=== PATIENT | male | born 1995 | race Caucasian/White ===

== ENCOUNTER 2017-07-14 09:15 | Outpatient (CLI) | payer MEDICAID | END 2017-07-14 09:16 | disposition critical access hospital (66) | LOC: EMS 09:15 | PROVIDERS: ATTEND Surgery | DX: R45.851 Suicidal ideations (principal) | CPT/HCPCS: A0425; A0429 ==

== ENCOUNTER 2017-07-14 09:43 | Emergency (ER) | payer MEDICAID ==
[2017-07-14 10:27] LABS: BASOPHILS # (AUTO) 0.1 10^3/uL (0.0-0.1); BASOPHILS % (AUTO) 0.8 %; EOSINOPHILS # (AUTO) 0.4 10^3/uL (0.0-0.7); EOSINOPHILS % (AUTO) 3.3 %; HGB - HEMOGLOBIN 15.2 g/dL (14.0-18.0); LYMPHOCYTES # (AUTO) 2.1 10^3/uL (1.5-3.5); LYMPHOCYTES % (AUTO) 18.7 %; MEAN CORPUSCULAR HEMOGLOBIN 29.9 pg (27.0-31.0); MEAN CORPUSCULAR HGB CONC 34.3 g/dL (32.0-36.0); MEAN PLATELET VOLUME 9.4 fL (7.4-11.4); MONOCYTES # (AUTO) 0.8 10^3/uL (0.0-1.0); MONOCYTES % (AUTO) 7.4 %; NEUTROPHILS # (AUTO) 7.8 10^3/uL (1.5-6.6); NEUTROPHILS % (AUTO) 69.8 %; PLT - PLATELET COUNT 164 10^3/uL (130-450); RED BLOOD COUNT 5.11 10^6/uL (4.70-6.10); RED CELL DISTRIBUTION WIDTH 12.4 % (12.0-15.0); WHITE BLOOD COUNT 11.2 x10^3/uL (4.8-10.8)
[2017-07-14 10:39] LABS: ALBUMIN 4.5 g/dL (3.2-5.5); ALBUMIN/GLOBULIN RATIO 1.5 (1.0-2.2); ALKALINE PHOSPHATASE 60 IU/L (42-121); ALT ALANINE AMINOTRANSFERASE 21 IU/L (10-60); AST ASPARTATE AMINOTRANSFERASE 17 IU/L (10-42); BILIRUBIN,TOTAL 1.1 mg/dL (0.2-1.0); BUN - BLOOD UREA NITROGEN 15 mg/dL (6-20); CALCIUM 9.3 mg/dL (8.5-10.3); CARBON DIOXIDE - CO2 25 mmol/L (21-32); CHLORIDE 101 mmol/L (101-111); CREATININE 0.9 mg/dL (0.6-1.2); GFR - MDRD 106 (>89); GLUCOSE 93 mg/dL (70-100); LIPASE 19 U/L (22-51); SODIUM 135 mmol/L (135-145); TOTAL PROTEIN 7.5 g/dL (6.7-8.2)
[2017-07-14 11:18] LABS: MUDS CUTOFF CONCENTRATIONS CUTOFF CONC BELOW:
[2017-07-14 11:20] LABS: BILIRUBIN,URINE NEGATIVE (NEGATIVE); CLARITY,URINE CLEAR (CLEAR); GLUCOSE, URINE (UA) NEGATIVE (NEGATIVE); KETONES,URINE (UA) NEGATIVE (NEGATIVE); LEUKOCYTE ESTERASE, URINE NEGATIVE (NEGATIVE); NITRITE,URINE NEGATIVE (NEGATIVE); OCCULT BLOOD,URINE NEGATIVE (NEGATIVE); PROTEIN,URINE NEGATIVE (NEGATIVE); UROBILINOGEN,URINE 0.2 (NORMAL) E.U./dL (NORMAL)
[2017-07-14 11:32] LABS: AMPHETAMINE SCREEN,URINE NEGATIVE (NEGATIVE); BENZODIAZEPINES SCREEN, URINE NEGATIVE (NEGATIVE); COCAINE SCREEN URINE NEGATIVE (NEGATIVE); METHADONE SCREEN, URINE NEGATIVE (NEGATIVE); METHAMPHETAMINES SCREEN, URINE NEGATIVE (NEGATIVE); OPIATE SCREEN, URINE NEGATIVE (NEGATIVE); OXYCODONE SCREEN, URINE NEGATIVE (NEGATIVE); PROPOXYPHENE SCREEN, URINE NEGATIVE (NEGATIVE); TRICYCLIC ANTIDEPRESSANT,URINE NEGATIVE (NEGATIVE)
--- NOTE | 2017-07-14 13:02 | TELEPSYCH PHYS NOTE ---
Telepsych Note - CHIEF COMPLAINT/HX OF PRESENT ILLNESS Cheif Complaint and History of Present Illness: Patient Name: Tor Friedman : 1995 Date: 07/14/2017 Location of Patient: [place] Location of Provider: [place] Provider Name: Constance Bolanos Provider Credentials: This evaluation was conducted via tele-psychiatry with the assistance of onsite staff: Dr Denton, RN Sridevi Chief Complaint: SI History of Present Illness: This is a 21yo male presenting to the ED for SI. Staff report that patient's uncle called 911 because patient had expressed SI to him. Precipitating stressors include being kicked out of the house by his uncle and being discharged from the [facility] 8 months ago. Staff report that patient expressed thoughts about jumping off a bridge. On interview, patient admits to depression with suicidal thoughts but denies any specific plans. Patient says he's struggled with depression off and on for 10 years but never sought help. He allowed his father Donato to be contacted as a collateral and father worries about his son's safety outside of a monitored setting. They both say that patient has never needed inpatient psychiatry before and that he has never engaged in any self harm. However, father says that they took patient's gun away to his father's safekeeping last weekend because they were worried about the patient using the gun against himself. Patient has made specific statements about self harm but they have changed from situation to situation. Father reports patient is not attending to hygeine and is increasingly withdrawn. Patient denies any HI and symptoms of psychosis. He is firm in his refusal of any type of mental health care. SI/ Self Harm/HI/Violence: +SI with various plans but no specifics; no HI; no past harm to self or others Collateral: father Donato at [phone] Access to Firearms: owns a gun but it is currently at his father's home 3 hours away; mother's home does not have guns Psychiatric History/Treatment History: none Drug/Alcohol History: toxicology negative Medical History: no active issues Medications & Freq: no psych meds Allergies: NKDA Family Psych History/History of Suicide: depression in father, uncle, and mother ; no suicides Social History: Living Situation: was with uncle but recently kicked out; now staying with his mother Employment: none currently Stressors: discharged from [facility] 8 months ago Strengths/supports: was able to tell uncle about suicidal thoughts today Mental Status Exam: Appearance and Attire: disheveled Attitude and Behavior: withdrawn Speech: reticent, soft, somewhat irritable tone Affect and Mood: blunted, "depressed" Association and Thought Processes: goal directed Thought Content: admits to passive SI but denies plans despite recent sources saying otherwise; no HI Perception: no hallucinations or delusions Sensorium and Orientation: alert, oriented to situation Insight and Judgment: fair to poor Impression/Risk Assessment: This is a 21 yo male with no prior psychiatric treatment who is brought to the ED for SI with various plans. Patient admits to depression with SI but no plan. He refuses both inpatient psychiatry and crisis stabilzation but is unable to make an adequate outpatient safety plan. Father is concerned about the patient's safety outside a monitored setting and they convinced patient to leave his gun to his father's safekeeping last weekend. Patient denies HI and symptoms of psychosis. Diagnosis: F32.9 Unspecified depressive disorder Treatment Recommendations: Pharmacological: on no psych meds at this time and will not start any in this setting Level of Care: DM evaluation for a higher level of psychiatric care as patient is a risk to self but refuses mental health help - MEDICAL HX Does the pt have a hx of MRSA?: No - ALLERGIES Allergies (as last confirmed): Allergies Allergy/AdvReac Type Severity Reaction Status Date / Time No Known Drug Allergies Allergy Verified 07/14/17 10:06 - TIME SPENT & PROVIDER LOCATION Telepsych consultation conducted via videoconferencing: Yes List names and roles of persons who participated in consult: Constance Bolanos. Tor Friedman Telepsych Provider Location: [place] Time Telepsych consult began: 13:03 Time Telepsych consult completed: 14:00
--- NOTE | 2017-07-14 18:11 | ED Physician Documentation ---
PD HPI MHE - Stated complaint Stated Complaint: SI - Chief complaint Chief Complaint: MHE - History obtained from History obtained from: Patient - History of Present Illness Primary symptom: Suicidal ideation, Depression Timing - onset: Yesterday Contributing factors: Family Similar symptoms before: No diagnosis Recently seen: Not recently seen - Additional information Additional information: 21-year-old male who was discharged from the [facility] 8 months ago has been living with his uncle. He has not been able to find a job and his uncle has kicked him out of the house. This happened yesterday the patient has become more despondent than usual and is feeling suicidal. He does have a gun in the possession of this has been removed from the patient. He had a plan to jump off of a bridge. He indicates that he has had depression for about 10 years he has had intermittent thoughts of suicide and he has never sought treatment for depression. He has never been on medications and he has never been in a psychiatric facility. Review of Systems Constitutional: denies: Fever, Chills Eyes: denies: Decreased vision Ears: denies: Ear pain Nose: denies: Rhinorrhea / runny nose, Congestion Throat: denies: Sore throat Cardiac: denies: Chest pain / pressure Respiratory: denies: Dyspnea, Cough GI: denies: Abdominal Pain, Nausea, Vomiting, Constipation, Diarrhea : denies: Dysuria, Frequency Skin: denies: Rash Musculoskeletal: denies: Neck pain, Back pain, Extremity pain Neurologic: denies: Generalized weakness, Focal weakness, Numbness PD PAST MEDICAL HISTORY - Past Medical History Past Medical History: No - Past Surgical History Past Surgical History: No - Allergies Allergies/Adverse Reactions: Allergies Allergy/AdvReac Type Severity Reaction Status Date / Time No Known Drug Allergies Allergy Verified 07/14/17 10:06 - Social History Does the pt smoke?: Yes Smoking Status: Current every day smoker Does the pt drink ETOH?: Yes Does the pt have substance abuse?: No - Immunizations Immunizations are current?: Yes - POLST Patient has POLST: No PD ED PE NORMAL - Vitals Vital signs reviewed: Yes (hypertensive mild) - General General: Alert and oriented X 3, No acute distress, Well developed/nourished, Other (heavliy bearded unkempt 21 y/o male with a flattened affect ) - HEENT HEENT: Atraumatic, PERRL, EOMI, Ears normal - Neck Neck: Supple, no meningeal sign, No bony TTP - Cardiac Cardiac: RRR, No murmur, No gallop - Respiratory Respiratory: No respiratory distress, Clear bilaterally - Abdomen Abdomen: Soft, Non tender - Back Back: No CVA TTP, No spinal TTP - Derm Derm: Normal color, Warm and dry, No rash - Extremities Extremities: No deformity, No edema - Neuro Neuro: Alert and oriented X 3, director oncology 2-12 intact, No motor deficit, No sensory deficit, Normal speech Eye Opening: Spontaneous Motor: Obeys Commands Verbal: Oriented GCS Score: 15 - Psych Psych: Other (mood is withdrawn and the affect is flat. ) Results - Vitals Vitals: Vital Signs - 24 hr 07/14/17 07/14/17 07/14/17 09:45 16:58 22:42 Temperature 36.6 C Heart Rate 74 67 71 Respiratory 18 14 18 Rate Blood Pressure 156/90 H 122/79 141/86 H O2 Saturation 99 98 96 Oxygen O2 Source Room air - Labs Labs: Laboratory Tests 07/14/17 07/14/17 07/14/17 10:22 10:22 10:22 WBC 11.2 H RBC 5.11 Hgb 15.2 Hct 44.4 MCV 87.0 MCH 29.9 MCHC 34.3 RDW 12.4 Plt Count 164 MPV 9.4 Neut # 7.8 H Lymph # 2.1 [place] # 0.8 Eos # 0.4 Baso # 0.1 Absolute Nucleated RBC 0.00 Nucleated RBC % 0.0 Sodium 135 Potassium 3.6 Chloride 101 Carbon Dioxide 25 Anion Gap 9.0 BUN 15 Creatinine 0.9 Estimated GFR (MDRD) 106 Glucose 93 Calcium 9.3 Total Bilirubin 1.1 H AST 17 ALT 21 Alkaline Phosphatase 60 Total Protein 7.5 Albumin 4.5 Globulin 3.0 Albumin/Globulin Ratio 1.5 Lipase 19 L TSH 3.50 Urine Color Urine Clarity Urine pH Ur Specific [place] Urine Protein Urine Glucose (UA) Urine Ketones Urine Occult Blood Urine Nitrite Urine Bilirubin Urine Urobilinogen Ur Leukocyte Esterase Ur Microscopic Review Urine Culture Comments Urine Opiates Screen Ur Oxycodone Screen Urine Methadone Screen Ur Propoxyphene Screen Ur Barbiturates Screen Ur Tricyclics Screen Ur Phencyclidine Scrn Ur Amphetamine Screen U Methamphetamines Scrn U Benzodiazepines Scrn Urine Cocaine Screen U Cannabinoids Screen Ethyl Alcohol < 5.0 07/14/17 11:10 WBC RBC Hgb Hct MCV MCH MCHC RDW Plt Count MPV Neut # Lymph # [place] # Eos # Baso # Absolute Nucleated RBC Nucleated RBC % Sodium Potassium Chloride Carbon Dioxide Anion Gap BUN Creatinine Estimated GFR (MDRD) Glucose Calcium Total Bilirubin AST ALT Alkaline Phosphatase Total Protein Albumin Globulin Albumin/Globulin Ratio Lipase TSH Urine Color YELLOW Urine Clarity CLEAR Urine pH 5.0 Ur Specific [place] 1.015 Urine Protein NEGATIVE Urine Glucose (UA) NEGATIVE Urine Ketones NEGATIVE Urine Occult Blood NEGATIVE Urine Nitrite NEGATIVE Urine Bilirubin NEGATIVE Urine Urobilinogen 0.2 (NORMAL) Ur Leukocyte Esterase NEGATIVE Ur Microscopic Review NOT INDICATED Urine Culture Comments NOT INDICATED Urine Opiates Screen NEGATIVE Ur Oxycodone Screen NEGATIVE Urine Methadone Screen NEGATIVE Ur Propoxyphene Screen NEGATIVE Ur Barbiturates Screen NEGATIVE Ur Tricyclics Screen NEGATIVE Ur Phencyclidine Scrn NEGATIVE Ur Amphetamine Screen NEGATIVE U Methamphetamines Scrn NEGATIVE U Benzodiazepines Scrn NEGATIVE Urine Cocaine Screen NEGATIVE U Cannabinoids Screen NEGATIVE Ethyl Alcohol PD MEDICAL DECISION MAKING - ED course Complexity details: reviewed results, re-evaluated patient, considered differential, d/w patient ED course: 21-year-old male with chronic depression and suicidal ideation after being kicked out of his uncles house appears significantly depressed. He has a flattened affect and is unkempt. He has threatened suicide by means available to him. Here in the emergency department the psychiatrist evaluates the patient via tele-psych and recommends hospitalization. The psychiatrist indicates the patient is not voluntary. The DCR is consulted in the case and arrangements are made for transfer to [facility]. Departure - Departure Disposition: 65 Psych Hosp/Unit DC/Xfer Clinical Impression: Suicidal ideation Depression Qualifiers: Depression Type: major depressive disorder Major depression recurrence: unspecified whether recurrent Active/Remission status: currently active Major depression episode severity: moderate Qualified Code(s): F32.1 - Major depressive disorder, single episode, moderate Condition: Stable Discharge Date/Time: 07/15/17 00:08
--- NOTE | 2017-07-14 22:16 | ED Physician Documentation ---
ED Addendum - Addendum Addendum: 07/14/17 22:[address] [facility]. Placed on involuntary hold. Accepted to [facility] by Dr. Larry Fabian at 2216. [facility] forms filled out. Patient will be transferred. Departure - Departure Disposition: 65 Psych Hosp/Unit DC/Xfer Clinical Impression: Suicidal ideation Depression Qualifiers: Depression Type: major depressive disorder Major depression recurrence: unspecified whether recurrent Active/Remission status: currently active Major depression episode severity: moderate Qualified Code(s): F32.1 - Major depressive disorder, single episode, moderate Condition: Stable
[2017-07-14 22:42] VITALS: BP 141/86
== END 2017-07-15 00:08 ==
LOC: ED 09:43
DX: F32.1 Major depressive disorder, single episode, moderate (principal); R45.851 Suicidal ideations; F17.200 Nicotine dependence, unspecified, uncomplicated
CPT/HCPCS: 36415; 80053; 80306; 80320; 81003; 83690; 84443; 85025; 99284; 99285; G0426; Q3014; 81001; 87086; 99283